=== PATIENT | male | born 1990 | race Caucasian/White ===

== ENCOUNTER 2019-05-03 03:59 | Inpatient (IN) ==
[2019-05-03] MEDS ORDERED: DILAUDID IV ONE ×2 (04:26→05:07)
[2019-05-03] MEDS ORDERED: ZOFRAN IV ONE (04:26)
[2019-05-03 04:34] LABS: BASO# 0.04 X1000 (0.0-0.2); BASO% 0.5 % (0.0-0.8); EOS% 2.4 % (0.0-10.0); HEMATOCRIT 42.3 % (42.0-52.0); HEMOGLOBIN 13.9 g/dL (14.0-18.0); IMM GRAN# 0.02 X1000 (0.0-0.04); IMM GRAN% 0.2 % (0.0-0.5); LYMPH# 3.08 X1000 (1.2-3.4); MCH 27.9 PG (27-31); MCHC 32.9 g/dL (33-37); MCV 84.9 FL (81-99); MONO# 0.66 X1000 (0.11-0.59); MONO% 7.9 % (1.7-9.3); MPV 11.7 FL (7.4-10.4); NEUT# 4.33 X1000 (1.4-6.5); PLT 236 X1000 (130-400); RBC 4.98 XMIL (4.7-6.1); RDW 12.4 % (11.5-14.5); WBC 8.33 X1000 (4.8-10.8)
[2019-05-03 04:40] LABS: AGAP 14; ALBUMIN 4.8 g/dL (3.5-5.0); ALKALINE PHOSPHATASE 56 U/L (32-122); AMYLASE 46 U/L (20-200); BUN 13 mg/dL (8-22); CALCIUM 9.2 mg/dL (8.8-10.2); CHLORIDE 98 mmol/L (98-107); COSMO 273; CREATININE 0.7 mg/dL (0.7-1.2); ESTIMATED GFR > 60; GLUCOSE 109 mg/dL (70-104); GOT 19 U/L (10-34); GPT 18 U/L (10-44); LIPASE 33 U/L (13-60); POTASSIUM 4.1 mmol/L (3.5-5.1); SODIUM 136 mmol/L (136-145); TCO2 24 mmol/L (25-35); TOTAL PROTEIN 7.9 g/dL (6.3-8.3)
--- NOTE | 2019-05-03 06:41 | PROVIDER DOCUMENTATION ---
HPI-Abdominal Pain/GI Problem - General Chief Complaint: Abdominal Pain Stated Complaint: ABD PAIN Time Seen by Provider: 05/03/19 04:08 Source: patient Allergies/Adverse Reactions: Patient Allergies Allergy/AdvReac Type Severity Reaction Status Date / Time No Known Allergies Allergy Verified 05/03/19 04:06 Home Medications: Home Medication List Medication Instructions Recorded Confirmed Last Taken Type NK [No Home Medications] 05/03/19 05/03/19 Unknown History - History of Present Illness-ABD Nature of Presenting Problems: 28 y/o WM c/o RUQ abdo pain since last night with nausea but no vomiting. He relates that he has been having this problem intermittently since august and has had CT scan and US showing GB stones in neck of his gall bladder. Abdominal Pain Onset Location: reports: RUQ Pain Radiation: reports: no radiation Quality of Pain: reports: aching Severity in ED: reports: mild Onset/Duration: reports: last night, other (intermittetly since august) Timing: reports: still present Activities at Onset: reports: rest Exposure to sick contacts?: No Modifying Factors: improves with: movement, palpation Associated Symptoms: reports: nausea Last BM: 24 hours ago Dark Stools Present?: reports: none noticed Rectal Bleeding: reports: none # of Diarrhea Episodes: 0 Rectal Pain: reports: none # of Vomiting Episodes: 0 Emesis Description: reports: none Bruising or Bleeding Gums?: No Similar Symptoms Previously?: Yes Recently seen or treated by another doctor?: Yes Review of Systems - Adult - REVIEW OF SYSTEMS - ADULT Constitutional: reports: no symptoms reported, see HPI Eyes: reports: no symptoms reported, see HPI Ears, Nose, Mouth & Throat: reports: no symptoms reported, see HPI Cardiovascular: reports: no symptoms reported, see HPI Respiratory: reports: no symptoms reported, see HPI Gastrointestinal: reports: see HPI, abdominal pain (RUQ/ epigastric) Genitourinary: reports: no symptoms reported, see HPI Musculoskeletal: reports: no symptoms reported, see HPI Integumentary: reports: no symptoms reported, see HPI Neurological: reports: no symptoms reported, see HPI Psychiatric: reports: no symptoms reported, see HPI Endocrine: reports: no symptoms reported, see HPI Hematologic/Lymphatic: reports: no symptoms reported, see HPI Allergic/Immunologic: reports: no symptoms reported, see HPI All Other Systems: Reviewed and Negative Past History - Adult - PAST MEDICAL HISTORY-ADULT Review of Records: reports: Nursing Assessment Review, Medications Reviewed, Social history reviewed & non-contributory. Physical Exam-General - PHYSICAL EXAM-ADULT Initial Vital Signs Reviewed: Yes - CONSTITUTIONAL General Appearance: appears well, alert, no apparent distress - EYES Eyes: PERRL/EOMI - HEAD, EARS, NOSE, MOUTH & THROAT HENMT: normocephalic/atraumatic, moist mucous membranes - NECK Neck: non-tender, full range of motion, supple - RESPIRATORY Respiratory: chest non-tender, lungs clear, normal breath sounds, no pleuratic chest pain, no respiratory distress, no accessory muscle use - CARDIOVASCULAR Cardiovascular: normal peripheral pulses, regular rate, rhythm, no edema, no gallop, no JVD, no murmur - GASTROINTESTINAL (ABDOMEN) Abdominal Exam: normal bowel sounds, soft, no organomegaly, no pulsatile mass, guarding, tenderness (RUQ) - LYMPHATIC Lymphatic: no adenopathy - MUSCULOSKELETAL Back Exam: normal inspection, no CVA tenderness, no vertebral tenderness Extremity: normal range of motion, non-tender, normal gait, normal inspection, no pedal edema, no calf tenderness - SKIN Integumentary: normal color, normal turgor - NEUROLOGIC Neurologic: all round logger II-XII nml as tested, grossly normal, no motor/sensory deficits - PSYCHIATRIC Psych/Mental Status: normal mood/affect, normal thought content, normal thought process, oriented x 3 Progress - PLAN OF CARE/RESULTS Progress/Plan/Lab Results: Vital Signs - 8 hr 05/03/19 04:03 Temperature 97.8 F Pulse Rate 83 Respiratory Rate 16 Blood Pressure 130/90 O2 Sat by Pulse Oximetry 97 Laboratory Results - last 24 hr 05/03/19 05/03/19 04:12 04:12 WBC 8.33 RBC 4.98 Hgb 13.9 L Hct 42.3 MCV 84.9 MCH 27.9 MCHC 32.9 L RDW Std Deviation 12.4 Plt Count 236 MPV 11.7 H Immature Gran % (Auto) 0.2 Neut % (Auto) 52.0 Lymph % (Auto) 37.0 Randolph % (Auto) 7.9 Eos % (Auto) 2.4 Baso % (Auto) 0.5 Immature Gran # (Auto) 0.02 Neut # (Auto) 4.33 Lymph # (Auto) 3.08 Randolph # (Auto) 0.66 H Eos # (Auto) 0.20 Baso # (Auto) 0.04 Sodium 136 Potassium 4.1 Chloride 98 Carbon Dioxide 24 L Anion Gap 14 BUN 13 Creatinine 0.7 Estimated GFR/1.73 m2 > 60 BUN/Creatinine Ratio 19 Glucose 109 H Calculated Osmolality 273 Calcium 9.2 Total Bilirubin 0.30 AST 19 ALT 18 Alkaline Phosphatase 56 Total Protein 7.9 Albumin 4.8 Globulin 3.0 Albumin/Globulin Ratio 2.0 Amylase 46 Lipase 33 Orders Category Date Time Status CT ABD/PELVIS W/IV CONT ONLY [CT] Stat Exams 05/03/19 04:19 Taken AMYLASE [CHEM] Stat Lab 05/03/19 04:12 Completed CBC WITH ELECTRONIC DIFF [HEME] Stat Lab 05/03/19 04:12 Completed COMPREHENSIVE METABOLIC PANEL [CHEM] Stat Lab 05/03/19 04:12 Completed LIPASE [CHEM] Stat Lab 05/03/19 04:12 Completed URINALYSIS W/POSS RFLX CULT [URINALYSIS] Stat Lab 05/03/19 04:19 Uncollected Hydromorphone [Dilaudid] Med 05/03/19 04:26 Discontinued 1 mg IV NOW ONE Hydromorphone [Dilaudid] Med 05/03/19 05:07 Discontinued 1 mg IV NOW ONE Ondansetron [Zofran] Med 05/03/19 04:26 Discontinued 4 mg IV NOW ONE Result Diagrams: 05/03/19 04:12 05/03/19 04:12 - CONSULTS/PCP/HOSPITALIST Notification #1 *Consult/PCP/Hospitalist*: Dr Skelton Time Discussed: 07:18 Reason/Comments: asked for transfer to [facility] Consult Disposition: Admit Departure - Departure Date of Disposition Decision: 05/03/19 Time of Disposition Decision: 07:19 DIAGNOSIS: Cholecystitis Disposition: ADMITTED INPATIENT 09 Certified Medical Emergency: Emergent Condition: Fair Referrals and Follow-Ups: Sim Arthur CRNP [Primary Care Provider] - - Critical Care Note This patient required my direct & personal management of CC.: No Attestation - Physician/ ZACARIAS Attestation Patient care was provided by Advanced Practice Provider:: No The physician spent face to face time with patient:: Yes Advanced Practice Provider documentation review:: Supervising physician onsite and consulted in the evaluation and care of this patient. The physician did have a face to face encounter with the patient.
[2019-05-03] MEDS ORDERED: ZOSYN 3.375 GM in NS 50 ML IV ONE (07:20)
[2019-05-03 08:01] LABS: URINE SOURCE CLEAN CATCH
[2019-05-03 08:15] LABS: BILIRUBIN URINE NEGATIVE (NEGATIVE); BLOOD URINE NEGATIVE (NEGATIVE); COLOR YELLOW; GLUCOSE URINE NEGATIVE (NEGATIVE); KETONE URINE NEGATIVE (NEGATIVE); LEUKOCYTES URINE NEGATIVE (NEGATIVE); NITRITE URINE NEGATIVE (NEGATIVE); PROTEIN URINE TRACE mg/dL (NEGATIVE); TURBIDITY URINE CLEAR (CLEAR); UR EPITHELIAL CELLS <10 /HPF (<10); URINE BACTERIA NEGATIVE /HPF; URINE RBC <10 /HPF (<10); URINE WBC <10 /HPF (<10); UROBILINOGEN URINE NORMAL (NORMAL)
[2019-05-03 08:32] LABS: SP GRAVITY URINE 1.001
--- NOTE | 2019-05-03 08:43 | Diag Imaging Result Doc PS360 ---
EXAM: US GB < RUQ (LIMITED) INDICATION: RUQ abdo pain COMPARISON: None. FINDINGS: The gallbladder wall appears somewhat thickened measuring 4.5 mm in thickness. No pericholecystic fluid is identified. No gallstones are appreciated. The common bile duct is normal in diameter. Sonographic Tejeda's sign was reported to be negative. The liver is grossly unremarkable. Portal venous flow is hepatopetal. The pancreas is largely obscured by bowel gas. The aorta and IVC are grossly unremarkable. The right kidney is grossly unremarkable. IMPRESSION: Thickening of the gallbladder wall which could indicate cholecystitis. However, no gallstones are appreciated and the checkman reported a negative sonographic Tejeda sign. Please correlate clinically. Electronically signed by Macho Lantigua 05/03/2019 8:40 AM
--- NOTE | 2019-05-03 11:08 | HISTORY AND PHYSICAL ---
CHIEF COMPLAINT: Abdominal pain. HISTORY OF PRESENT ILLNESS: This is a 28-year-old male who began developing severe right upper quadrant pain 2 days ago that radiated around to his back. It has been persistent in nature and progressive, and he came to the emergency room for evaluation. It was associated with nausea, but no fever, chills, diarrhea, vomiting, or other systemic complaints. He has had multiple other episodes over the last year, especially after eating greasy food. He has known gallstones. Currently, his pain has decreased some since receiving antibiotics and pain medicine in the emergency room. PAST MEDICAL HISTORY: Hiatal hernia and seasonal allergies. PAST SURGICAL HISTORY: Laparoscopic hiatal hernia repair, laparoscopic appendectomy, left shoulder surgery. HOME MEDICATIONS: A proton pump inhibitor, Zoloft and Xyzal. ALLERGIES: No known drug allergies. SOCIAL HISTORY: Negative for tobacco, alcohol or illicit drug use. FAMILY HISTORY: Reviewed and noncontributory. REVIEW OF SYSTEMS: Ten systems reviewed and negative, except as noted above. PHYSICAL EXAMINATION: VITAL SIGNS: Temperature 97.4 degrees, pulse 76, respirations 18, blood pressure 129/73, O2 saturation 99%. GENERAL: Well-developed, well-nourished male in no distress, who looks stated age. HEENT: Normocephalic, atraumatic. Extraocular muscles intact. Pupils equal, round, reactive to light. Sclerae anicteric. Moist mucous membranes. Hearing grossly normal. NECK: Supple. No thyromegaly. CV: Regular rate and rhythm. RESPIRATORY: Clear bilateral breath sounds. GI: Soft, nondistended. No organomegaly or mass. He is tender in the right upper quadrant. EXTREMITIES: No clubbing, cyanosis, or edema. SKIN: Warm and dry. No rash. MUSCULOSKELETAL: Moves all extremities equally and well. LABORATORY: CBC and complete metabolic profile reviewed and unremarkable. Amylase and lipase normal. Urinalysis negative. IMAGING: An abdominal ultrasound was performed which shows thickening of the gallbladder wall up to 4.5 mm in thickness. No gallstones were appreciated. An abdominal pelvis CT scan was performed, which did show thickening of the gallbladder wall with some pericholecystic fluid. ASSESSMENT AND PLAN: A 28-year-old male with what appears to be early acute cholecystitis. He has a history of stones. We are planning laparoscopic cholecystectomy today. I discussed the risks, benefits, alternatives, including bleeding, infection, incisional hernia, injury to surrounding organs such as the bile duct or intestines, and other imponderables. He understands and agrees to proceed. cc: Josh Skelton MD
[2019-05-03] MEDS: DILAUDID IV PRN ×3 (11:14→22:37)
--- NOTE | 2019-05-03 11:20 | Diag Imaging Result Doc PS360 ---
EXAM: CT ABD/PELVIS W/IV CONT ONLY INDICATION: RUQ abdo pain TECHNIQUE: This exam was performed using automated exposure control, adjustment of mA or kV according to patient size, and/or use of iterative reconstruction technique. COMPARISON: 01/29/2019 FINDINGS: The gallbladder wall appears mildly thickened and edematous. No radiopaque gallstones are identified. Cholecystitis cannot be excluded. There is no biliary dilatation. The liver, spleen, pancreas, adrenal glands, kidneys, and urinary bladder are unremarkable. There is evidence of a prior appendectomy. There is a small fluid-filled loop of small bowel in the left upper quadrant with only mild distention. This could be due to mild ileus. No bowel wall thickening is appreciated. There is a stable small hiatal hernia. There are small shotty lymph nodes at the root of the mesentery with surrounding haziness that are stable. Although nonspecific, this pattern is often associated with chronic mesenteric panniculitis. IMPRESSION: 1.Mild thickening of the gallbladder wall that is suspicious for cholecystitis. 2.Small fluid-filled loop of small bowel in the left upper quadrant likely from mild ileus. 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 Electronically signed by Macho Lantigua 05/03/2019 11:18 AM
[2019-05-03] MEDS: ZOSYN 3.375 GM in NS 50 ML IV SCH ×2 (11:21→18:31)
[2019-05-03] MEDS: NS 1,000 ML IV SCH (11:22)
[2019-05-03] MEDS ORDERED: DIPRIVAN 1% ONE (15:29)
[2019-05-03] MEDS ORDERED: FENTANYL ONE (15:30)
[2019-05-03] MEDS: ZOFRAN IV PRN ×2 (16:19→22:37)
[2019-05-03] MEDS ORDERED: LEVAQUIN 500 MG/D5W 500 MG/100 ML IVPB IV ONE (17:30)
[2019-05-03] MEDS ORDERED: ROBINUL ONE ×2 (17:46→18:24)
[2019-05-03] MEDS ORDERED: ZEMURON ONE ×2 (17:46→18:47)
[2019-05-03] MEDS ORDERED: NEOSTIGMINE ONE ×2 (17:46→19:57)
[2019-05-03] MEDS ORDERED: QUELICIN (DOSE) ONE (17:46)
[2019-05-03] MEDS ORDERED: XYLOCAINE-MPF 2% ONE (17:46)
[2019-05-03] MEDS ORDERED: LEVAQUIN 500 MG/D5W 500 MG/100 ML IVPB ONE (17:47)
[2019-05-03] MEDS ORDERED: SODIUM CHLORIDE 0.9% ONE (17:47)
[2019-05-03] MEDS ORDERED: MARCAINE 0.25% PF/EPI 1:200,000 ONE (17:47)
[2019-05-03] MEDS ORDERED: DECADRON ONE (17:47)
[2019-05-03] MEDS ORDERED: ZOFRAN ONE ×2 (17:47→19:56)
[2019-05-03] MEDS ORDERED: LR 1,000 ML ONE (17:47)
[2019-05-03] MEDS ORDERED: VERSED ONE (17:59)
[2019-05-03] MEDS ORDERED: PEPCID ONE (17:59)
[2019-05-03] MEDS ORDERED: TORADOL ONE (18:53)
--- NOTE | 2019-05-03 19:38 | OPERATIVE NOTE ---
PROCEDURE DATE: 05/03/2019 PREOPERATIVE DIAGNOSIS: Acute cholecystitis. POSTOP DIAGNOSIS: Acute cholecystitis. PROCEDURE: Laparoscopic cholecystectomy with operative cholangiogram. SURGEON: Josh Skelton MD. ANESTHESIA: General. ESTIMATED BLOOD LOSS: 5 mL. COMPLICATIONS: None apparent. SPECIMENS: Gallbladder. FINDINGS: The gallbladder appeared to be inflamed. The cholangiogram revealed normal proximal hepatic radicles as well as distal common bile duct. There was flow of contrast seen in the duodenum without filling defects or stenoses. TECHNIQUE: The patient was brought to the operating room and placed supine on the table. General anesthesia was induced. He was prepped and draped in usual sterile fashion. 0.25% Marcaine with epinephrine was used to anesthetize our incisions. An 11 mm incision was made below the umbilicus. The fascia was exposed and incised sharply. Entry into the peritoneal cavity was obtained under direct vision with the OptiiFlipd device. Pneumoperitoneum was established. The camera was inserted. There was no evidence of injury to underlying structures. He was placed in reverse Trendelenburg and left rotation. Three 5 mm incision ports were placed across the epigastric right upper quadrant below the costal margin per usual routine. The dome of the gallbladder was grasped by the assistant manager retail with an Allis clamp and lifted up superiorly. The triangle of Calot was then dissected out with the [place] forceps and hook cautery until the critical view was obtained. The gallbladder liver junction was seen. There were only 2 structures entering the gallbladder, the cystic duct and cystic artery. The artery was clipped proximally and distally and incised in between with scissors. A clip was placed on the distal cystic duct. A ductotomy was made proximal to this with scissors. A 14-gauge Angiocath was passed through the right upper quadrant. The Taut cholangiogram catheter was passed through this into the cystic duct and held in place with a clip. The cholangiogram was performed with findings as noted above. The clip, catheter, and Angiocath were removed. Two clips were placed on the proximal cystic duct. It was divided distal to these with scissors. The gallbladder was removed from the liver bed using hook cautery obtaining hemostasis along the way. I inspected the dissection area. There were no signs of any bleeding. I then placed the gallbladder in an EndoCatch bag under direct vision, brought it out through the umbilical port site. We desufflated the abdomen, removed the ports. The umbilical fascia was closed with a iijigm-rl-dlowd 0 Vicryl. The skin was closed with 4-0 subcuticular Biosyn and Steri-Strips. There were no apparent complications. He was awakened in stable condition and transferred to recovery room. cc: Josh Skelton MD
--- NOTE | 2019-05-03 19:59 | Diag Imaging Result Doc PS360 ---
EXAM: OPERATIVE CHOLANGIOGRAM INDICATION: GB DISEASE TECHNIQUE: COMPARISON: None. FINDINGS: A single spot fluoroscopic image of the opacified common bile duct is provided, which was performed intraoperatively during cholecystectomy by Dr. Josh Skelton. The common bile duct appears normal in caliber with no discrete filling defect or stricture. Contrast is seen flowing normally into the small bowel. IMPRESSION: As above. Please correlate with live fluoroscopic imaging. Electronically signed by Macho Lantigua 05/03/2019 7:57 PM
--- NOTE | 2019-05-03 20:03 | Diag Imaging Result Doc PS360 ---
EXAM: CHEST-PORTABLE INDICATION: POST OP TECHNIQUE: One view COMPARISON: None. FINDINGS: Central vasculature is somewhat prominent suggesting mild pulmonary venous congestion and there is also likely a component of minimal interstitial edema. Inspiration is suboptimal. There is no discrete pleural fluid collection or pneumothorax. There is cardiomegaly. IMPRESSION: Suggestion of mild pulmonary venous congestion and minimal interstitial edema. Electronically signed by Macho Lantigua 05/03/2019 8:00 PM
[2019-05-04] MEDS: NS 1,000 ML IV SCH ×2 (01:20→13:41)
--- NOTE | 2019-05-04 08:31 | Diag Imaging Result Doc PS360 ---
EXAM: CHEST-PORTABLE INDICATION: POSSIBLE ASPIRATION TECHNIQUE: One view COMPARISON: 05/03/2019 FINDINGS: Inspiration is suboptimal. This is similar to the previous study. Mild pulmonary venous congestion, likely with a component of mild interstitial edema is unchanged. There is slight increased opacity behind the cardiac silhouette at the medial aspect of the left lung base which could represent a developing consolidation versus atelectasis. No other new consolidation is identified. Cardiac silhouette is stable, otherwise. IMPRESSION: Increased opacity behind the cardiac silhouette on the left suggesting increased atelectasis versus infiltrate. Electronically signed by Macho Lantigua 05/04/2019 8:29 AM
[2019-05-04] MEDS: DILAUDID IV PRN ×2 (09:07→18:23)
[2019-05-04] MEDS: NORCO-10 PO PRN ×2 (12:11→20:52)
[2019-05-04] MEDS: LEVAQUIN PO SCH (13:37)
--- NOTE | 2019-05-04 17:35 | GENERAL SURGERY PROGRESS NOTE ---
DATE: 05/04/2019 SUBJECTIVE: The patient overall feels a little better. OBJECTIVE: He is afebrile. Vital signs are stable.General: He is awake and alert in no acute distress. Gastrointestinal: Soft, nondistended, appropriately tender. Incisions are clean, dry, and intact. Respiratory: He has bilateral breath sounds without increased work of breathing, but there are mild rales in the left base. IMAGING: Chest x-ray demonstrates increased opacity on the left concerning for atelectasis versus new infiltrate or pneumonia. ASSESSMENT AND PLAN: A 28-year-old male status post laparoscopic cholecystectomy. He may have had aspiration and pneumonia development. We will encourage incentive spirometry. I have him on Levaquin. We will repeat a chest x-ray tomorrow. He has been weaned off his oxygen. cc: Josh Skelton MD
[2019-05-04] MEDS: ZOFRAN IV PRN (19:48)
[2019-05-04] MEDS ORDERED: ZOLOFT PO ONE (20:01)
[2019-05-04] MEDS: TUMS PO PRN (20:11)
[2019-05-05] MEDS: NORCO-10 PO PRN ×4 (00:50→13:55)
[2019-05-05] MEDS: NS 1,000 ML IV SCH (03:52)
[2019-05-05 07:37] LABS: BASO# 0.03 X1000 (0.0-0.2); BASO% 0.3 % (0.0-0.8); EOS# 0.24 X1000 (0.0-0.7); EOS% 2.7 % (0.0-10.0); HEMOGLOBIN 12.4 g/dL (14.0-18.0); IMM GRAN# 0.02 X1000 (0.0-0.04); IMM GRAN% 0.2 % (0.0-0.5); LYMPH# 2.06 X1000 (1.2-3.4); LYMPH% 22.9 % (20.5-51.1); MCH 27.7 PG (27-31); MCHC 31.8 g/dL (33-37); MCV 87.2 FL (81-99); MONO# 0.83 X1000 (0.11-0.59); MONO% 9.2 % (1.7-9.3); MPV 12.1 FL (7.4-10.4); NEUT# 5.82 X1000 (1.4-6.5); NEUT% 64.7 % (42.2-75.2); PLT 182 X1000 (130-400); RBC 4.47 XMIL (4.7-6.1); RDW 12.7 % (11.5-14.5)
--- NOTE | 2019-05-05 07:42 | Diag Imaging Result Doc PS360 ---
CHEST-2 VIEWS - 05/05/2019 INDICATION: atelectasis vs pna COMPARISON: 05/04/2019 FINDINGS: There is stable substantial infiltrate in the left lower lobe. Stable patchy infiltrate or atelectasis at the right lung base. Stable severely low lung volumes. No pneumothorax or pleural effusion. IMPRESSION: Dense infiltrate in the left lower lobe consistent with pneumonia. Electronically signed by Panda Salvador 05/05/2019 7:39 AM
[2019-05-05] MEDS: BENADRYL PO PRN ×2 (09:02→13:55)
[2019-05-05] MEDS: LEVAQUIN PO SCH (09:03)
[2019-05-05] MEDS: TUMS PO PRN (09:03)
[2019-05-05] MEDS ORDERED: PRILOSEC PO SCH (09:14)
[2019-05-05 11:50] VITALS: BP 102/58
[2019-05-05] MEDS ORDERED: CEFTIN PO SCH (12:45)
[2019-05-05] MEDS ORDERED: FLAGYL PO SCH (13:00)
--- NOTE | 2019-05-05 13:06 | GENERAL SURGERY PROGRESS NOTE ---
DATE: 05/05/2019 SUBJECTIVE: The patient is doing well. He denies abdominal pain, nausea, or vomiting. He just has some soreness. He denies chest pain or shortness of breath. He is tolerating his diet. OBJECTIVE: Vital Signs: He is afebrile. Vital signs are stable. General: He is awake and alert. No acute distress. GI: Soft, nontender, nondistended. Incision is clean, dry, and intact. Respiratory: Clear bilateral breath sounds. No increased work of breathing. LABORATORY DATA: CBC normal. IMAGING: Chest x-ray this morning shows dense infiltrate in the left lower lobe, consistent with pneumonia. ASSESSMENT AND PLAN: A 28-year-old male status post laparoscopic cholecystectomy, now with possible aspiration pneumonia. Clinically, he is stable and seems to be much improved. I have consulted the hospitalist for assistance with this, and hopefully he can be discharged soon with followup in my office and with his primary care physician. cc: Josh Skelton MD
--- NOTE | 2019-05-05 15:23 | CONSULTATION ---
DATE OF CONSULTATION: 05/05/2019 REQUESTING PHYSICIAN: Dr. Josh Skelton REASON FOR CONSULTATION: This is an addendum to consultation dictated by the nurse practitioner. I agree with most components of consultation. In brief Mr. sol is 28 years old man who was admitted on 05/03/2019 with chief complaint of right upper quadrant abdominal pain with nausea without vomiting. He in fact, has been having this problems for several months. He in the emergency room, underwent CT scan as well as abdominal ultrasound which had detected acute cholecystitis. He underwent laparoscopic cholecystectomy on 05/03/2019. Towards the end of the procedure at the time of extubation, he was noticed to have some bilious fluid in the endotracheal tube and the anesthesia as well as surgical team was concerned about possible pneumonia, so serial chest x-rays were performed. The chest x-ray performed on 05/05/2019 suggests dense infiltrate in the left lower lobe and there was a suspicion of pneumonia so hospitalist team was consulted further management. Mr. Fagan denies any chest pain or shortness of breath. He has been intermittently coughing and occasionally bringing white sputum. He denies any nausea, vomiting, abdominal pain. He has been passing gas. VITALS: Temperature of 98.4 degrees, pulse 94, respiratory rate 20, blood pressure 102/58. Saturating 95% room air. PHYSICAL EXAMINATION: General: Not in acute distress. Oral cavity is moist. Lungs: Air entry bilaterally equal. No wheeze or rhonchi. Mild crackles in the infrascapular region bilaterally. Cardiovascular: S1, S2 normal no or gallop. Abdomen: Soft. There is a laparoscopy port entry site appears to be healing well. No tenderness. Active bowel sounds. Extremity: No lower extremity edema. He is alert oriented x3. His is at bedside. LABS: Suggestive of WBC of 9000, hemoglobin 12.4, platelets 182,000. His lactate has been unremarkable. Blood cultures have not shown any growth to date. Chest x-ray on May 04 image has been reviewed. ASSESSMENT AND PLAN: 1. Left lower lobe likely aspiration pneumonia. The patient does not have leukocytosis or fever. He was briefly hypoxic but now breathing well on room air after he was started on antibiotics yesterday. To cover for oral and gastrointestinal anaerobic aaliyah and enteric gram negative, I think oral cefuroxime and metronidazole would be good antibiotic. He could be discharged on those antibiotics for completion of total of 5 days 2. Status post acute cholecystectomy. Recommend management as per General Surgical team. 3. Disposition. From a medical perspective, Mr. Fagan is okay to be discharged on oral antibiotics. I discussed about pathophysiology of pneumonia, aspiration treatment and symptoms with the patient as well as his family at bedside. I allowed them to ask questions. They asked me about itching, which could be related to opioid use and I briefly reviewed with them about possible adverse reaction that could happen with antibiotics. They understood it. All of their questions were answered. I thank you for allowing us to partake in this patient's care. Please call us with any questions. cc: MD Josh Reid MD MTDD
[2019-05-05] MEDS ORDERED: ZOLOFT PO SCH (17:00)
--- NOTE | 2019-05-05 19:54 | CONSULTATION ---
DATE OF CONSULTATION: 05/05/2019 CONSULTING PHYSICIAN: Dr. Josh Skelton. REASON FOR CONSULT: Pneumonia. HOSPITAL COURSE: Mr. Fagan presented to the emergency room with right upper quadrant pain with nausea and no vomiting. He was found to have acute cholecystitis per CT scan as well as abdominal ultrasound. He underwent laparoscopic cholecystectomy on 05/03/2019. On extubation, he was noted to have bilious fluid in the endotracheal tube. Therefore, serial chest x-rays have been performed. CXR 05/05/2019 suggests dense infiltrate in the left lower lobe with a suspicion of pneumonia so hospitalist team was consulted for medical management. Mr. Fagan denies any chest pain or shortness of breath. He has been intermittently coughing and occasionally bringing white sputum. He denies any nausea, vomiting, abdominal pain. VITALS: Temperature of 98.4 degrees, pulse 94, respiratory rate 20, blood pressure 102/58. Saturating 95% room air. PHYSICAL EXAMINATION: General: This is a 28 yo male who is walking in the brown, Not in acute distress. HEENT: PERRL, sclera nonicteric. Mucous membranes moist. Lungs: BBS clear, Air entry bilaterally equal. No wheeze or rhonchi. Mild crackles in the infrascapular bilateral. NO increased WOB. Cardiovascular: RRR,S1, S2 , no murmur. States calves nontender bilaterally. Abdomen: Soft. laparoscopy incision clear, dry and intact.. No tenderness. Active bowel sounds. Extremity: No lower extremity edema. Neurologic:alert oriented x3. LABS: Suggestive of WBC of 9000, hemoglobin 12.4, platelets 182,000. His lactate has been unremarkable. Blood cultures have not shown any growth to date. Chest x-ray on May 04 image has been reviewed. ASSESSMENT AND PLAN: 1. Left lower lobe likely aspiration pneumonia. The patient does not have leukocytosis or fever. He was briefly hypoxic but now breathing well on room air after he was started on antibiotics yesterday. CHange antibiotics to oral cefuroxime and metronidazole.. 2. Status post acute cholecystectomy. management per General Surgical team. . Plan discussed with Dr Garnica and Dr Skelton. Thank you for allowing us to participate in this patients care. Dictated by KINGS Sylvester for Eleazar Garnica MD cc: Katie KINGS Hendrix MD Jason R. Seale, MD I agree with most components of the consultation. I independently evaluated the patient. A separate addendum has been dictated. LUKE
== END 2019-05-05 15:51 | disposition home or self-care (01) | DRG 417 ==
LOC: P.ED 03:59 → 4N 04:00
PROVIDERS: ADMIT Surgery; ATTEND Surgery